=== PATIENT | male | born 2000 | race Caucasian/White ===

== ENCOUNTER 2018-04-13 17:55 | Inpatient (IN) | payer OTHER ==
[~2018-04-13] VITALS: Ht 170.2 cm; Wt 73.5 kg
[2018-04-13] MEDS ORDERED: ACETAMINOPHEN 325 MG TABLET PO PRN (18:45)
[2018-04-13] MEDS ORDERED: DOCUSATE SODIUM 283 MG/5 ML MINI-ENEMA PR PRN (18:45)
[2018-04-13 19:47] VITALS: BP 113/54
[2018-04-13] MEDS: SENNA 187 MG TABLET PO SCH (20:19)
[2018-04-13] MEDS: DOCUSATE SODIUM 100 MG CAPSULE PO SCH (20:19)
[2018-04-13] MEDS ORDERED: GABAPENTIN 300 MG CAPSULE PO SCH (21:00)
[2018-04-13 23:50] VITALS: BP 110/47
[2018-04-14] MEDS: ACETAMINOPHEN 325 MG TABLET PO PRN ×2 (01:37→09:19)
[2018-04-14 06:33] LABS: EOSINOPHILS % (AUTO) 3.6 % (1.0-6.0); HEMATOCRIT 35.7 % (41-53); HEMOGLOBIN 12.4 g/dL (13.5-17.5); LYMPHOCYTES # (AUTO) 1.5 K/uL (1.0-4.8); LYMPHOCYTES % (AUTO) 25.4 % (22.0-44.0); MEAN CORPUSCULAR HEMOGLOBIN 27.6 pg (26.0-34.0); MEAN CORPUSCULAR HGB CONC 34.7 G/dL (31.0-37.0); MEAN CORPUSCULAR VOLUME 80 fL (80-100); MONOCYTES # (AUTO) 0.6 K/uL (0.1-1.0); MONOCYTES % (AUTO) 10.1 % (2.0-9.0); NEUTROPHILS # (AUTO) 3.6 K/uL (1.8-7.7); NEUTROPHILS % (AUTO) 59.9 % (40.0-70.0); PLATELET COUNT (AUTO) 205 K/uL (150-450); RED BLOOD CELL COUNT(AUTO) 4.49 MIL/uL (4.50-5.90); RED CELL DISTRIBUTION WIDTH 14.1 % (11.5-14.5)
[2018-04-14 06:54] LABS: ALANINE AMINOTRANSFERASE 243 U/L (12-78); ALBUMIN 3.3 g/dL (3.4-5.0); ALKALINE PHOSPHATASE 98 U/L (46-116); ANION GAP 5 mmol/L (8-16); ASPARTATE AMINOTRANSFERASE 232 U/L (15-37); BILIRUBIN,TOTAL 0.6 mg/dL (0.1-1.0); CALCIUM, TOTAL 8.3 mg/dL (8.8-10.5); CARBON DIOXIDE 29 mmol/L (22-29); CHLORIDE 103 mmol/L (98-107); CREATININE 0.82 mg/dL (0.60-1.30); GLOMERULAR FILTR. RATE CALC > 60 mL/min (>60); GLUCOSE,RANDOM 93 mg/dL (70-110); POTASSIUM 4.2 mmol/L (3.5-5.1); SODIUM SERUM 137 mmol/L (136-145); TOTAL PROTEIN, SERUM 8.5 g/dL (6.4-8.2); UREA NITROGEN, BLOOD 23 mg/dL (7-18)
[2018-04-14 07:23] VITALS: BP 98/46
[2018-04-14] MEDS: ENOXAPARIN SODIUM 40 MG/0.4 ML PF SYRINGE SQ SCH (09:19)
[2018-04-14] MEDS: DOCUSATE SODIUM 100 MG CAPSULE PO SCH ×2 (09:19→20:27)
[2018-04-14 15:19] VITALS: BP 105/60
[2018-04-14] MEDS: GABAPENTIN 100 MG CAPSULE PO SCH (15:37)
[2018-04-14] MEDS: SENNA 187 MG TABLET PO SCH (20:27)
[2018-04-14] MEDS: GABAPENTIN 300 MG CAPSULE PO SCH (20:28)
[2018-04-14] MEDS: MELATONIN 3 MG TABLET PO PRN (22:08)
[2018-04-14 23:30] VITALS: BP 113/60
[2018-04-15 07:26] LABS: ALANINE AMINOTRANSFERASE 294 U/L (12-78); ALBUMIN 3.5 g/dL (3.4-5.0); ALKALINE PHOSPHATASE 99 U/L (46-116); ANION GAP 6 mmol/L (8-16); ASPARTATE AMINOTRANSFERASE 228 U/L (15-37); BILIRUBIN,TOTAL 0.6 mg/dL (0.1-1.0); CALCIUM, TOTAL 8.7 mg/dL (8.8-10.5); CARBON DIOXIDE 30 mmol/L (22-29); CHLORIDE 100 mmol/L (98-107); CREATININE 0.85 mg/dL (0.60-1.30); GLOMERULAR FILTR. RATE CALC > 60 mL/min (>60); GLUCOSE,RANDOM 94 mg/dL (70-110); POTASSIUM 4.3 mmol/L (3.5-5.1); SODIUM SERUM 136 mmol/L (136-145); TOTAL PROTEIN, SERUM 8.8 g/dL (6.4-8.2); UREA NITROGEN, BLOOD 28 mg/dL (7-18)
[2018-04-15] MEDS ORDERED: GABAPENTIN 100 MG CAPSULE PO SCH (09:00)
[2018-04-15 09:13] VITALS: BP 113/60
[2018-04-15] MEDS: ENOXAPARIN SODIUM 40 MG/0.4 ML PF SYRINGE SQ SCH (09:28)
[2018-04-15] MEDS: GABAPENTIN 100 MG CAPSULE PO SCH ×2 (09:28→14:27)
[2018-04-15] MEDS: DOCUSATE SODIUM 100 MG CAPSULE PO SCH ×2 (09:29→20:07)
[2018-04-15] MEDS: FAMOTIDINE 20 MG TABLET PO SCH (09:29)
[2018-04-15 15:59] VITALS: BP 101/62
[2018-04-15] MEDS: SENNA 187 MG TABLET PO SCH (20:07)
[2018-04-15] MEDS: GABAPENTIN 300 MG CAPSULE PO SCH (20:07)
[2018-04-15] MEDS: MELATONIN 3 MG TABLET PO PRN (21:31)
[2018-04-16 02:00] VITALS: BP 114/56
[2018-04-16] MEDS: ACETAMINOPHEN 325 MG TABLET PO PRN (02:04)
[2018-04-16 07:15] VITALS: BP 87/59
[2018-04-16] MEDS: ENOXAPARIN SODIUM 40 MG/0.4 ML PF SYRINGE SQ SCH (08:12)
[2018-04-16] MEDS: FAMOTIDINE 20 MG TABLET PO SCH (08:12)
[2018-04-16] MEDS: DOCUSATE SODIUM 100 MG CAPSULE PO SCH ×2 (08:12→21:06)
[2018-04-16] MEDS: GABAPENTIN 100 MG CAPSULE PO SCH ×2 (08:12→13:58)
[2018-04-16 08:17] VITALS: BP 109/67
[2018-04-16 15:19] VITALS: BP 109/54
[2018-04-16] MEDS: SENNA 187 MG TABLET PO SCH (21:06)
[2018-04-16] MEDS: GABAPENTIN 300 MG CAPSULE PO SCH (21:09)
[2018-04-16] MEDS: MELATONIN 3 MG TABLET PO PRN (22:03)
[2018-04-17 01:45] VITALS: BP 110/57
[2018-04-17] MEDS: ACETAMINOPHEN 325 MG TABLET PO PRN (01:45)
[2018-04-17 07:24] VITALS: BP 97/41
[2018-04-17 08:09] LABS: IRON, SERUM 70 mcg/dL (50-175); TOTAL IRON BINDING CAPACITY 350 mcg/dL (250-450)
[2018-04-17] MEDS: GABAPENTIN 100 MG CAPSULE PO SCH ×2 (08:25→14:03)
[2018-04-17] MEDS: DOCUSATE SODIUM 100 MG CAPSULE PO SCH ×2 (08:25→20:12)
[2018-04-17] MEDS: FAMOTIDINE 20 MG TABLET PO SCH (08:25)
[2018-04-17 08:26] LABS: ALANINE AMINOTRANSFERASE 185 U/L (12-78); ALBUMIN 3.5 g/dL (3.4-5.0); ALKALINE PHOSPHATASE 102 U/L (46-116); ANION GAP 5 mmol/L (8-16); ASPARTATE AMINOTRANSFERASE 125 U/L (15-37); BILIRUBIN,TOTAL 0.5 mg/dL (0.1-1.0); CALCIUM, TOTAL 8.8 mg/dL (8.8-10.5); CARBON DIOXIDE 31 mmol/L (22-29); CHLORIDE 100 mmol/L (98-107); CHOL/HDL RATIO 2.2 (4.2-7.3); CHOLESTEROL 128 mg/dL (131-200); CREATININE 0.83 mg/dL (0.60-1.30); FERRITIN 491 ng/mL (26-388); GLOMERULAR FILTR. RATE CALC > 60 mL/min (>60); GLUCOSE,RANDOM 89 mg/dL (70-110); HDL CHOLESTEROL 58 mg/dL (40-60); LDL CHOL (CALC.) 65 mg/dL (0-130); POTASSIUM 4.1 mmol/L (3.5-5.1); SODIUM SERUM 136 mmol/L (136-145); TOTAL PROTEIN, SERUM 8.9 g/dL (6.4-8.2); TRIGLYCERIDES 24 mg/dL (15-150); UREA NITROGEN, BLOOD 25 mg/dL (7-18)
[2018-04-17] MEDS: ENOXAPARIN SODIUM 40 MG/0.4 ML PF SYRINGE SQ SCH (08:26)
[2018-04-17 16:02] VITALS: BP 110/65
[2018-04-17] MEDS: SENNA 187 MG TABLET PO SCH (20:12)
[2018-04-17] MEDS: GABAPENTIN 300 MG CAPSULE PO SCH (20:12)
[2018-04-17] MEDS: MELATONIN 3 MG TABLET PO PRN (21:40)
[2018-04-18 04:30] VITALS: BP 95/61
[2018-04-18 07:49] VITALS: BP 99/63
[2018-04-18] MEDS: FAMOTIDINE 20 MG TABLET PO SCH (08:31)
[2018-04-18] MEDS: DOCUSATE SODIUM 100 MG CAPSULE PO SCH ×2 (08:32→21:00)
[2018-04-18] MEDS: ENOXAPARIN SODIUM 40 MG/0.4 ML PF SYRINGE SQ SCH (08:32)
[2018-04-18] MEDS: GABAPENTIN 100 MG CAPSULE PO SCH ×2 (08:32→14:07)
[2018-04-18 15:25] VITALS: BP 116/68
[2018-04-18] MEDS: SENNA 187 MG TABLET PO SCH (21:00)
[2018-04-18] MEDS: GABAPENTIN 300 MG CAPSULE PO SCH (21:12)
[2018-04-18] MEDS: MELATONIN 3 MG TABLET PO PRN (21:12)
[2018-04-19 05:30] VITALS: BP 108/65
[2018-04-19 07:20] VITALS: BP 109/55
[2018-04-19 07:39] LABS: ALANINE AMINOTRANSFERASE 117 U/L (12-78); ALBUMIN 3.2 g/dL (3.4-5.0); ALKALINE PHOSPHATASE 93 U/L (46-116); ANION GAP 7 mmol/L (8-16); ASPARTATE AMINOTRANSFERASE 76 U/L (15-37); BILIRUBIN,TOTAL 0.4 mg/dL (0.1-1.0); CALCIUM, TOTAL 8.8 mg/dL (8.8-10.5); CARBON DIOXIDE 30 mmol/L (22-29); CHLORIDE 102 mmol/L (98-107); CREATININE 0.69 mg/dL (0.60-1.30); GLOMERULAR FILTR. RATE CALC > 60 mL/min (>60); GLUCOSE,RANDOM 91 mg/dL (70-110); POTASSIUM 4.3 mmol/L (3.5-5.1); SODIUM SERUM 139 mmol/L (136-145); TOTAL PROTEIN, SERUM 8.2 g/dL (6.4-8.2); UREA NITROGEN, BLOOD 25 mg/dL (7-18)
[2018-04-19] MEDS: DOCUSATE SODIUM 100 MG CAPSULE PO SCH ×2 (08:37→20:59)
[2018-04-19] MEDS: ENOXAPARIN SODIUM 40 MG/0.4 ML PF SYRINGE SQ SCH (08:38)
[2018-04-19] MEDS: FAMOTIDINE 20 MG TABLET PO SCH (08:38)
[2018-04-19] MEDS: GABAPENTIN 100 MG CAPSULE PO SCH ×2 (08:38→14:04)
[2018-04-19 15:20] VITALS: BP 111/65
[2018-04-19] MEDS: MELATONIN 3 MG TABLET PO PRN (20:58)
[2018-04-19] MEDS: GABAPENTIN 300 MG CAPSULE PO SCH (20:58)
[2018-04-19] MEDS: SENNA 187 MG TABLET PO SCH (20:59)
[2018-04-20 05:47] VITALS: BP 110/55
[2018-04-20] MEDS: ACETAMINOPHEN 325 MG TABLET PO PRN (05:47)
[2018-04-20 07:42] VITALS: BP 109/54
[2018-04-20] MEDS: DOCUSATE SODIUM 100 MG CAPSULE PO SCH ×2 (09:00→21:00)
[2018-04-20] MEDS: FAMOTIDINE 20 MG TABLET PO SCH (10:26)
[2018-04-20] MEDS: GABAPENTIN 100 MG CAPSULE PO SCH ×2 (10:26→14:12)
[2018-04-20] MEDS: ENOXAPARIN SODIUM 40 MG/0.4 ML PF SYRINGE SQ SCH (10:26)
[2018-04-20 15:52] VITALS: BP 109/46
[2018-04-20] MEDS: SENNA 187 MG TABLET PO SCH (21:00)
[2018-04-20] MEDS: MELATONIN 3 MG TABLET PO PRN (21:19)
[2018-04-20] MEDS: GABAPENTIN 300 MG CAPSULE PO SCH (21:19)
[2018-04-21 05:00] VITALS: BP 103/61
[2018-04-21] MEDS: ENOXAPARIN SODIUM 40 MG/0.4 ML PF SYRINGE SQ SCH (08:10)
[2018-04-21] MEDS: FAMOTIDINE 20 MG TABLET PO SCH (08:10)
[2018-04-21] MEDS: DOCUSATE SODIUM 100 MG CAPSULE PO SCH ×3 (08:10→21:00)
[2018-04-21] MEDS: GABAPENTIN 100 MG CAPSULE PO SCH ×2 (08:10→14:46)
[2018-04-21 16:30] VITALS: BP 118/68
[2018-04-21] MEDS: SENNA 187 MG TABLET PO SCH ×2 (20:39→21:00)
[2018-04-21] MEDS: GABAPENTIN 300 MG CAPSULE PO SCH (20:59)
[2018-04-21] MEDS: MELATONIN 3 MG TABLET PO PRN (20:59)
[2018-04-22 04:02] VITALS: BP 110/67
[2018-04-22 08:53] VITALS: BP 112/60
[2018-04-22] MEDS: FAMOTIDINE 20 MG TABLET PO SCH (08:56)
[2018-04-22] MEDS: GABAPENTIN 100 MG CAPSULE PO SCH ×2 (08:56→13:23)
[2018-04-22] MEDS: ENOXAPARIN SODIUM 40 MG/0.4 ML PF SYRINGE SQ SCH (08:58)
[2018-04-22] MEDS: DOCUSATE SODIUM 100 MG CAPSULE PO SCH ×2 (08:59→20:43)
[2018-04-22 15:51] VITALS: BP 107/66
[2018-04-22] MEDS: GABAPENTIN 300 MG CAPSULE PO SCH (20:43)
[2018-04-22] MEDS: SENNA 187 MG TABLET PO SCH (20:44)
[2018-04-22] MEDS: MELATONIN 3 MG TABLET PO PRN (20:46)
[2018-04-23 07:00] VITALS: BP 112/70
[2018-04-23 07:28] VITALS: BP 112/70
[2018-04-23] MEDS: GABAPENTIN 100 MG CAPSULE PO SCH ×2 (08:34→15:46)
[2018-04-23] MEDS: DOCUSATE SODIUM 100 MG CAPSULE PO SCH ×3 (08:35→21:00)
[2018-04-23] MEDS: ENOXAPARIN SODIUM 40 MG/0.4 ML PF SYRINGE SQ SCH (08:35)
[2018-04-23] MEDS: FAMOTIDINE 20 MG TABLET PO SCH (08:35)
[2018-04-23 17:04] VITALS: BP 112/57
[2018-04-23] MEDS: SENNA 187 MG TABLET PO SCH (21:00)
[2018-04-23] MEDS: GABAPENTIN 300 MG CAPSULE PO SCH (21:18)
[2018-04-23] MEDS: MELATONIN 3 MG TABLET PO PRN (21:19)
[2018-04-24 05:50] VITALS: BP 107/58
[2018-04-24 07:17] LABS: BASOPHILS % (AUTO) 1.1 % (0.0-2.0); EOSINOPHILS % (AUTO) 3.1 % (1.0-6.0); HEMATOCRIT 34.3 % (41-53); HEMOGLOBIN 11.6 g/dL (13.5-17.5); LYMPHOCYTES # (AUTO) 1.7 K/uL (1.0-4.8); MEAN CORPUSCULAR HEMOGLOBIN 27.4 pg (26.0-34.0); MEAN CORPUSCULAR HGB CONC 33.8 G/dL (31.0-37.0); MEAN CORPUSCULAR VOLUME 81 fL (80-100); MONOCYTES # (AUTO) 0.5 K/uL (0.1-1.0); MONOCYTES % (AUTO) 7.7 % (2.0-9.0); NEUTROPHILS # (AUTO) 3.6 K/uL (1.8-7.7); NEUTROPHILS % (AUTO) 60.1 % (40.0-70.0); PLATELET COUNT (AUTO) 240 K/uL (150-450); RED BLOOD CELL COUNT(AUTO) 4.24 MIL/uL (4.50-5.90); RED CELL DISTRIBUTION WIDTH 15.5 % (11.5-14.5)
[2018-04-24 07:28] VITALS: BP 100/63
[2018-04-24] MEDS: GABAPENTIN 100 MG CAPSULE PO SCH ×2 (08:47→14:03)
[2018-04-24] MEDS: ENOXAPARIN SODIUM 40 MG/0.4 ML PF SYRINGE SQ SCH (08:47)
[2018-04-24] MEDS: FAMOTIDINE 20 MG TABLET PO SCH (08:48)
[2018-04-24] MEDS: DOCUSATE SODIUM 100 MG CAPSULE PO SCH ×2 (08:49→20:40)
[2018-04-24 15:39] VITALS: BP 103/56
[2018-04-24] MEDS: MELATONIN 3 MG TABLET PO PRN (20:40)
[2018-04-24] MEDS: GABAPENTIN 300 MG CAPSULE PO SCH (20:40)
[2018-04-25 06:02] VITALS: BP 108/55
[2018-04-25] MEDS: ENOXAPARIN SODIUM 40 MG/0.4 ML PF SYRINGE SQ SCH (08:12)
[2018-04-25] MEDS: GABAPENTIN 100 MG CAPSULE PO SCH ×2 (08:12→14:02)
[2018-04-25] MEDS: FAMOTIDINE 20 MG TABLET PO SCH (08:12)
[2018-04-25] MEDS: DOCUSATE SODIUM 100 MG CAPSULE PO SCH ×2 (08:12→21:00)
[2018-04-25 08:28] VITALS: BP 110/57
[2018-04-25 15:25] VITALS: BP 112/73
[2018-04-25] MEDS: MELATONIN 3 MG TABLET PO PRN (21:04)
[2018-04-25] MEDS: GABAPENTIN 300 MG CAPSULE PO SCH (21:04)
[2018-04-26 06:21] VITALS: BP 102/61
[2018-04-26 07:33] VITALS: BP 85/50
[2018-04-26] MEDS: FAMOTIDINE 20 MG TABLET PO SCH (07:56)
[2018-04-26] MEDS: ENOXAPARIN SODIUM 40 MG/0.4 ML PF SYRINGE SQ SCH (07:57)
[2018-04-26] MEDS: GABAPENTIN 100 MG CAPSULE PO SCH ×2 (07:57→14:49)
[2018-04-26] MEDS: DOCUSATE SODIUM 100 MG CAPSULE PO SCH ×2 (07:57→20:35)
[2018-04-26 08:05] VITALS: BP 111/40
[2018-04-26 16:00] VITALS: BP 121/69
[2018-04-26] MEDS: GABAPENTIN 300 MG CAPSULE PO SCH (20:34)
[2018-04-26] MEDS: MELATONIN 3 MG TABLET PO PRN (20:34)
[2018-04-27 06:20] VITALS: BP 95/49
[2018-04-27 07:24] VITALS: BP 91/44
[2018-04-27] MEDS: FAMOTIDINE 20 MG TABLET PO SCH (08:20)
[2018-04-27] MEDS: GABAPENTIN 100 MG CAPSULE PO SCH ×2 (08:20→14:08)
[2018-04-27] MEDS: ENOXAPARIN SODIUM 40 MG/0.4 ML PF SYRINGE SQ SCH (08:21)
[2018-04-27 08:25] VITALS: BP 120/71
[2018-04-27 15:15] VITALS: BP 106/66
[2018-04-27] MEDS: GABAPENTIN 300 MG CAPSULE PO SCH (21:09)
[2018-04-27] MEDS: MELATONIN 3 MG TABLET PO PRN (21:09)
[2018-04-28 06:30] VITALS: BP 99/52
[2018-04-28 08:30] VITALS: BP 106/55
[2018-04-28] MEDS: ENOXAPARIN SODIUM 40 MG/0.4 ML PF SYRINGE SQ SCH (08:56)
[2018-04-28] MEDS: GABAPENTIN 100 MG CAPSULE PO SCH ×2 (08:56→13:03)
[2018-04-28] MEDS: FAMOTIDINE 20 MG TABLET PO SCH (08:56)
[2018-04-28 15:35] VITALS: BP 94/53
[2018-04-28 17:24] VITALS: BP 102/61
[2018-04-28] MEDS: MELATONIN 3 MG TABLET PO PRN (20:57)
[2018-04-28] MEDS: GABAPENTIN 300 MG CAPSULE PO SCH (20:57)
[2018-04-29 08:00] VITALS: BP 102/59
[2018-04-29] MEDS: GABAPENTIN 100 MG CAPSULE PO SCH ×2 (09:16→14:22)
[2018-04-29] MEDS: ENOXAPARIN SODIUM 40 MG/0.4 ML PF SYRINGE SQ SCH (09:16)
[2018-04-29] MEDS: FAMOTIDINE 20 MG TABLET PO SCH (09:17)
[2018-04-29 15:46] VITALS: BP 125/66
[2018-04-29] MEDS: GABAPENTIN 300 MG CAPSULE PO SCH (20:16)
[2018-04-29] MEDS: MELATONIN 3 MG TABLET PO PRN (21:27)
[2018-04-30 06:00] VITALS: BP 108/52
[2018-04-30 07:29] VITALS: BP 107/56
[2018-04-30] MEDS: FAMOTIDINE 20 MG TABLET PO SCH (09:27)
[2018-04-30] MEDS: GABAPENTIN 100 MG CAPSULE PO SCH ×2 (09:27→14:06)
[2018-04-30] MEDS: ENOXAPARIN SODIUM 40 MG/0.4 ML PF SYRINGE SQ SCH (09:28)
[2018-04-30 16:30] VITALS: BP 113/72
[2018-04-30] MEDS: GABAPENTIN 300 MG CAPSULE PO SCH (20:19)
[2018-04-30] MEDS: MELATONIN 3 MG TABLET PO PRN (20:20)
[2018-05-01 05:04] VITALS: BP 108/55
[2018-05-01 07:17] VITALS: BP 99/49
[2018-05-01] MEDS: ENOXAPARIN SODIUM 40 MG/0.4 ML PF SYRINGE SQ SCH (08:16)
[2018-05-01] MEDS: GABAPENTIN 100 MG CAPSULE PO SCH ×2 (08:16→14:46)
[2018-05-01] MEDS: FAMOTIDINE 20 MG TABLET PO SCH (08:16)
[2018-05-01 16:39] VITALS: BP 119/68
[2018-05-01] MEDS: MELATONIN 3 MG TABLET PO PRN (20:25)
[2018-05-01] MEDS: GABAPENTIN 300 MG CAPSULE PO SCH (20:25)
[2018-05-02 06:04] VITALS: BP 108/64
[2018-05-02 07:21] VITALS: BP 90/70
[2018-05-02] MEDS: GABAPENTIN 100 MG CAPSULE PO SCH ×2 (08:04→13:10)
[2018-05-02] MEDS: FAMOTIDINE 20 MG TABLET PO SCH (08:05)
[2018-05-02] MEDS: ASPIRIN 81 MG CHEWABLE TABLET PO SCH (08:05)
[2018-05-02 08:15] VITALS: BP 117/65
[2018-05-02 15:17] VITALS: BP 132/58
[2018-05-02] MEDS: MELATONIN 3 MG TABLET PO PRN (20:44)
[2018-05-02] MEDS: GABAPENTIN 300 MG CAPSULE PO SCH (20:50)
[2018-05-03 06:21] VITALS: BP 104/51
[2018-05-03 07:33] VITALS: BP 101/56
[2018-05-03] MEDS: GABAPENTIN 100 MG CAPSULE PO SCH ×2 (08:08→13:14)
[2018-05-03] MEDS: ASPIRIN 81 MG CHEWABLE TABLET PO SCH (08:08)
[2018-05-03] MEDS: FAMOTIDINE 20 MG TABLET PO SCH (08:08)
[2018-05-03 16:28] VITALS: BP 115/59
[2018-05-03] MEDS: GABAPENTIN 300 MG CAPSULE PO SCH (20:47)
[2018-05-03] MEDS: MELATONIN 3 MG TABLET PO PRN (20:49)
[2018-05-04 05:30] VITALS: BP 116/58
[2018-05-04 07:20] VITALS: BP 108/67
[2018-05-04] MEDS: FAMOTIDINE 20 MG TABLET PO SCH (08:12)
[2018-05-04] MEDS: ASPIRIN 81 MG CHEWABLE TABLET PO SCH (08:13)
[2018-05-04] MEDS: GABAPENTIN 100 MG CAPSULE PO SCH ×2 (08:13→14:38)
[2018-05-04 15:48] VITALS: BP 120/66
[2018-05-04] MEDS: MELATONIN 3 MG TABLET PO PRN (21:17)
[2018-05-04] MEDS: GABAPENTIN 300 MG CAPSULE PO SCH (21:19)
[2018-05-05 05:46] VITALS: BP 102/54
[2018-05-05] MEDS: ASPIRIN 81 MG CHEWABLE TABLET PO SCH (09:15)
[2018-05-05] MEDS: FAMOTIDINE 20 MG TABLET PO SCH (09:15)
[2018-05-05] MEDS: GABAPENTIN 100 MG CAPSULE PO SCH ×2 (09:15→14:14)
[2018-05-05 09:23] VITALS: BP 113/65
[2018-05-05 15:00] VITALS: BP 114/65
[2018-05-05] MEDS: MELATONIN 3 MG TABLET PO PRN (21:01)
[2018-05-05] MEDS: GABAPENTIN 300 MG CAPSULE PO SCH (21:01)
[2018-05-05] MEDS: ACETAMINOPHEN 325 MG TABLET PO PRN (21:02)
[2018-05-05 23:30] VITALS: BP 109/62
[2018-05-06 08:57] VITALS: BP 98/66
[2018-05-06] MEDS: GABAPENTIN 100 MG CAPSULE PO SCH ×2 (09:42→13:44)
[2018-05-06] MEDS: ASPIRIN 81 MG CHEWABLE TABLET PO SCH (09:42)
[2018-05-06] MEDS: FAMOTIDINE 20 MG TABLET PO SCH (09:43)
[2018-05-06 15:25] VITALS: BP 126/69
[2018-05-06] MEDS: MELATONIN 3 MG TABLET PO PRN (21:32)
[2018-05-06] MEDS: GABAPENTIN 300 MG CAPSULE PO SCH (21:32)
[2018-05-06 23:30] VITALS: BP 101/60
[2018-05-07 07:28] VITALS: BP 105/54
[2018-05-07] MEDS: GABAPENTIN 100 MG CAPSULE PO SCH ×2 (08:30→14:19)
[2018-05-07] MEDS: FAMOTIDINE 20 MG TABLET PO SCH (08:30)
[2018-05-07] MEDS: ASPIRIN 81 MG CHEWABLE TABLET PO SCH (08:30)
[2018-05-07 14:08] LABS: BASOPHILS % (AUTO) 0.6 % (0.0-2.0); EOSINOPHILS % (AUTO) 1.7 % (1.0-6.0); HEMOGLOBIN 12.9 g/dL (13.5-17.5); LYMPHOCYTES # (AUTO) 0.9 K/uL (1.0-4.8); LYMPHOCYTES % (AUTO) 18.1 % (22.0-44.0); MEAN CORPUSCULAR HEMOGLOBIN 27.5 pg (26.0-34.0); MEAN CORPUSCULAR HGB CONC 33.1 G/dL (31.0-37.0); MEAN CORPUSCULAR VOLUME 83 fL (80-100); MONOCYTES # (AUTO) 0.6 K/uL (0.1-1.0); MONOCYTES % (AUTO) 11.6 % (2.0-9.0); NEUTROPHILS # (AUTO) 3.4 K/uL (1.8-7.7); PLATELET COUNT (AUTO) 171 K/uL (150-450); RED BLOOD CELL COUNT(AUTO) 4.69 MIL/uL (4.50-5.90); RED CELL DISTRIBUTION WIDTH 14.7 % (11.5-14.5)
[2018-05-07 14:31] LABS: ALANINE AMINOTRANSFERASE 47 U/L (12-78); ALBUMIN 3.9 g/dL (3.4-5.0); ALKALINE PHOSPHATASE 93 U/L (46-116); ANION GAP 8 mmol/L (8-16); ASPARTATE AMINOTRANSFERASE 37 U/L (15-37); BILIRUBIN,TOTAL 0.5 mg/dL (0.1-1.0); CALCIUM, TOTAL 9.4 mg/dL (8.8-10.5); CARBON DIOXIDE 31 mmol/L (22-29); CHLORIDE 98 mmol/L (98-107); CREATININE 0.73 mg/dL (0.60-1.30); GLOMERULAR FILTR. RATE CALC > 60 mL/min (>60); GLUCOSE,RANDOM 115 mg/dL (70-110); POTASSIUM 4.2 mmol/L (3.5-5.1); SODIUM SERUM 137 mmol/L (136-145); TOTAL PROTEIN, SERUM 8.4 g/dL (6.4-8.2); UREA NITROGEN, BLOOD 19 mg/dL (7-18)
[2018-05-07 15:30] VITALS: BP 101/61
[2018-05-07] MEDS: MELATONIN 3 MG TABLET PO PRN (21:05)
[2018-05-07] MEDS: GABAPENTIN 300 MG CAPSULE PO SCH (21:05)
[2018-05-08 05:50] VITALS: BP 101/47
[2018-05-08 07:55] VITALS: BP 94/55
[2018-05-08] MEDS: FAMOTIDINE 20 MG TABLET PO SCH (09:24)
[2018-05-08] MEDS: ASPIRIN 81 MG CHEWABLE TABLET PO SCH (09:24)
[2018-05-08] MEDS: GABAPENTIN 100 MG CAPSULE PO SCH ×2 (09:25→14:01)
[2018-05-08 09:50] VITALS: BP 124/76
[2018-05-08 15:21] LABS: APPEARANCE,URINE CLEAR (CLEAR); BILIRUBIN,URINE NEGATIVE (NEGATIVE); GLUCOSE, URINE (UA) NEGATIVE (NEGATIVE); KETONES,URINE NEGATIVE (NEGATIVE); LEUKOCYTE ESTERASE ,URINE NEGATIVE (NEGATIVE); NITRATE,URINE NEGATIVE (NEGATIVE); OCCULT BLOOD,URINE NEGATIVE (NEGATIVE); PROTEIN,URINE NEGATIVE (NEGATIVE); UROBILINOGEN,URINE 0.2 mg/dL (<=1.0)
[2018-05-08 15:28] LABS: BACTERIA,URINE None Seen /HPF (None Seen); RBC,URINE None Seen /HPF (0-2); SQUAMOUS EPITHELIAL CELL,UR Rare /LPF (None Seen); WBC,URINE None Seen /HPF (0-5)
[2018-05-08 17:48] VITALS: BP 114/79
[2018-05-08] MEDS: MELATONIN 3 MG TABLET PO PRN (20:29)
[2018-05-08] MEDS: GABAPENTIN 300 MG CAPSULE PO SCH (20:29)
[2018-05-09 05:30] VITALS: BP 96/47
[2018-05-09 06:34] LABS: BASOPHILS % (AUTO) 0.9 % (0.0-2.0); EOSINOPHILS % (AUTO) 3.9 % (1.0-6.0); HEMATOCRIT 36.8 % (41-53); HEMOGLOBIN 12.9 g/dL (13.5-17.5); LYMPHOCYTES # (AUTO) 1.4 K/uL (1.0-4.8); LYMPHOCYTES % (AUTO) 32.1 % (22.0-44.0); MEAN CORPUSCULAR HEMOGLOBIN 28.3 pg (26.0-34.0); MEAN CORPUSCULAR VOLUME 81 fL (80-100); MONOCYTES # (AUTO) 0.6 K/uL (0.1-1.0); MONOCYTES % (AUTO) 15.2 % (2.0-9.0); NEUTROPHILS % (AUTO) 47.9 % (40.0-70.0); PLATELET COUNT (AUTO) 161 K/uL (150-450); RED BLOOD CELL COUNT(AUTO) 4.54 MIL/uL (4.50-5.90); RED CELL DISTRIBUTION WIDTH 13.8 % (11.5-14.5)
[2018-05-09 07:14] LABS: ANION GAP 7 mmol/L (8-16); CALCIUM, TOTAL 9.2 mg/dL (8.8-10.5); CARBON DIOXIDE 30 mmol/L (22-29); CHLORIDE 103 mmol/L (98-107); CREATININE 0.71 mg/dL (0.60-1.30); GLOMERULAR FILTR. RATE CALC > 60 mL/min (>60); GLUCOSE,RANDOM 87 mg/dL (70-110); POTASSIUM 4.1 mmol/L (3.5-5.1); SODIUM SERUM 140 mmol/L (136-145); UREA NITROGEN, BLOOD 21 mg/dL (7-18)
[2018-05-09 07:47] VITALS: BP 99/44
[2018-05-09] MEDS: ASPIRIN 81 MG CHEWABLE TABLET PO SCH (08:23)
[2018-05-09] MEDS: FAMOTIDINE 20 MG TABLET PO SCH (08:23)
[2018-05-09] MEDS: GABAPENTIN 100 MG CAPSULE PO SCH ×2 (08:24→14:09)
[2018-05-09 08:42] VITALS: BP 118/75
[2018-05-09 09:41] LABS: ERYTHROCYTE SEDIMENTATION RATE 65 MM/HR (0-15)
[2018-05-09 15:20] VITALS: BP 109/46
[2018-05-09] MEDS: GABAPENTIN 300 MG CAPSULE PO SCH (21:15)
[2018-05-09] MEDS: MELATONIN 3 MG TABLET PO PRN (21:16)
[2018-05-10] VITALS: BP 105/66
[2018-05-10 07:05] VITALS: BP 99/42
[2018-05-10] MEDS: GABAPENTIN 100 MG CAPSULE PO SCH ×2 (08:12→12:57)
[2018-05-10] MEDS: FAMOTIDINE 20 MG TABLET PO SCH (08:12)
[2018-05-10] MEDS: ASPIRIN 81 MG CHEWABLE TABLET PO SCH (08:12)
[2018-05-10 15:01] VITALS: BP 99/70
[2018-05-10 16:05] VITALS: BP 106/59
[2018-05-10] MEDS: GABAPENTIN 300 MG CAPSULE PO SCH (20:36)
[2018-05-10 23:15] VITALS: BP 110/61
[2018-05-11 07:20] VITALS: BP 113/54
[2018-05-11] MEDS: GABAPENTIN 100 MG CAPSULE PO SCH ×2 (08:15→13:57)
[2018-05-11 17:54] VITALS: BP 113/70
[2018-05-11] MEDS: GABAPENTIN 300 MG CAPSULE PO SCH (20:48)
[2018-05-12 06:18] VITALS: BP 112/53
[2018-05-12 08:00] VITALS: BP 98/56
[2018-05-12] MEDS: GABAPENTIN 100 MG CAPSULE PO SCH ×2 (08:52→13:56)
[2018-05-12 12:00] VITALS: BP 113/67
[2018-05-12] MEDS: GABAPENTIN 300 MG CAPSULE PO SCH (21:08)
[2018-05-12 23:19] VITALS: BP 106/61
[2018-05-13 07:12] VITALS: BP 98/72
[2018-05-13] MEDS: GABAPENTIN 100 MG CAPSULE PO SCH ×2 (08:57→13:48)
[2018-05-13 16:01] VITALS: BP 113/64
[2018-05-13] MEDS: GABAPENTIN 300 MG CAPSULE PO SCH (20:07)
[2018-05-14 05:52] VITALS: BP 103/47
[2018-05-14 08:00] VITALS: BP 125/68
[2018-05-14] MEDS: GABAPENTIN 100 MG CAPSULE PO SCH ×2 (09:17→13:09)
[2018-05-14 16:22] VITALS: BP 113/81
[2018-05-14] MEDS: GABAPENTIN 300 MG CAPSULE PO SCH (20:30)
[2018-05-15] VITALS: BP 106/57
[2018-05-15 06:36] LABS: BAND NEUTROPHILS % (MANUAL) 0 % (0-5)
[2018-05-15 06:47] LABS: HEMATOCRIT 39.9 % (41-53); MEAN CORPUSCULAR HGB CONC 35.2 G/dL (31.0-37.0); MEAN CORPUSCULAR VOLUME 82 fL (80-100); PLATELET COUNT (AUTO) 213 K/uL (150-450); RED BLOOD CELL COUNT(AUTO) 4.84 MIL/uL (4.50-5.90)
[2018-05-15 07:33] LABS: ANION GAP 5 mmol/L (8-16); CARBON DIOXIDE 30 mmol/L (22-29); CHLORIDE 105 mmol/L (98-107); CREATININE 0.79 mg/dL (0.60-1.30); GLOMERULAR FILTR. RATE CALC > 60 mL/min (>60); GLUCOSE,RANDOM 98 mg/dL (70-110); POTASSIUM 4.3 mmol/L (3.5-5.1); SODIUM SERUM 140 mmol/L (136-145); UREA NITROGEN, BLOOD 20 mg/dL (7-18)
[2018-05-15 08:00] VITALS: BP 94/52
[2018-05-15] MEDS: GABAPENTIN 100 MG CAPSULE PO SCH ×2 (08:46→13:08)
[2018-05-15 08:47] LABS: EOSINOPHILS % (MANUAL) 3 % (1-6); LYMPHOCYTES % (MANUAL) 43 % (22-44); MONOCYTES % (MANUAL) 4 % (2-9); SEGMENTED NEUTROPHILS % 50 % (40-70)
[2018-05-15 17:53] VITALS: BP 112/72
[2018-05-15] MEDS: GABAPENTIN 300 MG CAPSULE PO SCH (20:16)
[2018-05-16 06:30] VITALS: BP 101/56
[2018-05-16 07:31] VITALS: BP 117/54
[2018-05-16] MEDS: GABAPENTIN 100 MG CAPSULE PO SCH ×2 (08:07→14:14)
[2018-05-16 15:46] VITALS: BP 131/62
[2018-05-16] MEDS: GABAPENTIN 300 MG CAPSULE PO SCH (20:33)
[2018-05-17 06:09] VITALS: BP 108/59
[2018-05-17 07:10] VITALS: BP 101/59
[2018-05-17] MEDS: GABAPENTIN 100 MG CAPSULE PO SCH ×2 (09:12→13:56)
[2018-05-17 16:08] VITALS: BP 104/58
[2018-05-17] MEDS: GABAPENTIN 300 MG CAPSULE PO SCH (20:05)
[2018-05-18 06:08] VITALS: BP 112/62
[2018-05-18 07:38] VITALS: BP 110/59
[2018-05-18] MEDS: GABAPENTIN 100 MG CAPSULE PO SCH ×2 (09:52→13:03)
[2018-05-18 15:46] VITALS: BP 106/62
[2018-05-18] MEDS: GABAPENTIN 300 MG CAPSULE PO SCH (20:40)
[2018-05-19 05:30] VITALS: BP 112/60
[2018-05-19 07:50] VITALS: BP 101/63
[2018-05-19] MEDS: GABAPENTIN 100 MG CAPSULE PO SCH ×2 (09:21→13:55)
[2018-05-19 16:19] VITALS: BP 95/54
[2018-05-19] MEDS: GABAPENTIN 300 MG CAPSULE PO SCH (20:41)
[2018-05-19 23:31] VITALS: BP 100/52
[2018-05-20 08:00] VITALS: BP 112/50
[2018-05-20] MEDS: GABAPENTIN 100 MG CAPSULE PO SCH ×2 (09:29→13:56)
[2018-05-20 16:00] VITALS: BP 99/61
[2018-05-20] MEDS: GABAPENTIN 300 MG CAPSULE PO SCH (20:24)
[2018-05-21 05:45] VITALS: BP 101/63
[2018-05-21 07:16] VITALS: BP 138/65
[2018-05-21] MEDS: GABAPENTIN 100 MG CAPSULE PO SCH ×2 (08:27→15:35)
[2018-05-21 15:23] VITALS: BP 106/68
[2018-05-21] MEDS ORDERED: GABAPENTIN 300 MG CAPSULE PO SCH (21:00)
[2018-05-22 05:50] VITALS: BP 102/59
[2018-05-22 07:52] VITALS: BP 108/50
[2018-05-22] MEDS ORDERED: GABAPENTIN 100 MG CAPSULE PO ONE (14:00)
[2018-05-22 16:13] VITALS: BP 106/68
[2018-05-22] MEDS: GABAPENTIN 100 MG CAPSULE PO SCH (20:04)
[2018-05-23 05:50] VITALS: BP 99/58
[2018-05-23 07:30] VITALS: BP 126/78
[2018-05-23] MEDS: GABAPENTIN 100 MG CAPSULE PO SCH ×2 (08:27→20:33)
[2018-05-23 16:08] VITALS: BP 117/69
[2018-05-24 06:03] VITALS: BP 104/48
[2018-05-24 07:19] VITALS: BP 109/53
[2018-05-24] MEDS: GABAPENTIN 100 MG CAPSULE PO SCH ×2 (08:29→20:37)
[2018-05-24 15:50] VITALS: BP 111/69
[2018-05-25 06:18] VITALS: BP 114/63
[2018-05-25 07:16] VITALS: BP 102/66
[2018-05-25] MEDS: GABAPENTIN 100 MG CAPSULE PO SCH ×2 (09:25→20:08)
[2018-05-25 16:00] VITALS: BP 109/56
[2018-05-26 05:55] VITALS: BP 108/57
[2018-05-26 07:28] VITALS: BP 104/53
[2018-05-26] MEDS: GABAPENTIN 100 MG CAPSULE PO SCH ×2 (08:35→20:31)
[2018-05-26 15:00] VITALS: BP 100/82
[2018-05-27 00:20] VITALS: BP 100/56
[2018-05-27 07:24] VITALS: BP 92/50
[2018-05-27] MEDS: GABAPENTIN 100 MG CAPSULE PO SCH (09:00)
[2018-05-27 15:37] VITALS: BP 108/79
[2018-05-28] VITALS: BP 117/54
[2018-05-28 06:02] LABS: BAND NEUTROPHILS % (MANUAL) 0 % (0-5)
[2018-05-28 06:14] LABS: HEMATOCRIT 40.8 % (41-53); HEMOGLOBIN 13.5 g/dL (13.5-17.5); MEAN CORPUSCULAR HEMOGLOBIN 26.6 pg (26.0-34.0); MEAN CORPUSCULAR VOLUME 81 fL (80-100); PLATELET COUNT (AUTO) 200 K/uL (150-450); RED BLOOD CELL COUNT(AUTO) 5.06 MIL/uL (4.50-5.90); RED CELL DISTRIBUTION WIDTH 14.2 % (11.5-14.5)
[2018-05-28 06:21] LABS: ANION GAP 7 mmol/L (8-16); CALCIUM, TOTAL 9.1 mg/dL (8.8-10.5); CARBON DIOXIDE 30 mmol/L (22-29); CHLORIDE 105 mmol/L (98-107); CREATININE 0.71 mg/dL (0.60-1.30); GLOMERULAR FILTR. RATE CALC > 60 mL/min (>60); GLUCOSE,RANDOM 98 mg/dL (70-110); POTASSIUM 3.9 mmol/L (3.5-5.1); SODIUM SERUM 142 mmol/L (136-145); UREA NITROGEN, BLOOD 20 mg/dL (7-18)
[2018-05-28 07:20] VITALS: BP 90/57
[2018-05-28 08:46] LABS: EOSINOPHILS % (MANUAL) 4 % (1-6); LYMPHOCYTES % (MANUAL) 37 % (22-44); MONOCYTES % (MANUAL) 6 % (2-9); SEGMENTED NEUTROPHILS % 53 % (40-70)
[2018-05-28 15:29] VITALS: BP 98/58
[2018-05-29 05:07] VITALS: BP 106/59
[2018-05-29 07:21] VITALS: BP 107/57
[2018-05-29 16:35] VITALS: BP 112/84
[2018-05-29 23:46] VITALS: BP 119/65
[2018-05-30 07:21] VITALS: BP 104/52
== END 2018-05-30 11:00 | disposition home or self-care (01) | DRG 94 ==
LOC: 2WR 17:55
DX: G61.0 Guillain-Barre syndrome (principal); G82.50 Quadriplegia, unspecified; G62.9 Polyneuropathy, unspecified; K59.00 Constipation, unspecified; D64.9 Anemia, unspecified; F43.20 Adjustment disorder, unspecified; G47.00 Insomnia, unspecified; Z79.899 Other long term (current) drug therapy
CPT/HCPCS: 80074; 82728; 83540; 83550; 85007; 85651; 87081; 93970; 97110; 97112; 97116; 97140; 97150; 97162; 97166; 97530; 97535; 97537; 99366; J1650